=== PATIENT | male | born 1945 | race Caucasian/White ===

== ENCOUNTER 2023-10-02 11:02 | Outpatient (CLI) | payer MEDICARE ==
[2023-10-03] MEDS ORDERED: ATOR40TA72 PO (14:38)
[2023-10-03] MEDS ORDERED: DUTA0.5C36 (14:38)
[2023-10-03] MEDS ORDERED: ENOX120D5 SQ (14:38)
[2023-10-03] MEDS ORDERED: BUPR-317 PO (14:38)
[2023-10-03] MEDS ORDERED: FLO0.4C (14:38)
[2023-10-03] MEDS ORDERED: FLUT16SP26 NS (14:38)
[2023-10-03] MEDS ORDERED: APIX5TAB3 PO (14:38)
[2023-10-03] MEDS ORDERED: RABE20TA31 PO (14:38)
[2023-10-03] MEDS ORDERED: CETI-194 PO (14:39)
== END 2023-10-02 23:59 | disposition home or self-care (01) ==
LOC: RAD 11:02
PROVIDERS: ATTEND Otolaryngology
DX: J32.2 Chronic ethmoidal sinusitis (principal); J32.0 Chronic maxillary sinusitis; J32.8 Other chronic sinusitis
CPT/HCPCS: 70486

== ENCOUNTER 2023-10-04 09:11 | Day surgery (SDC) | payer MEDICARE ==
[2023-10-04] VITALS (7 sets, daily range): BP systolic 114–139; BP diastolic 61–79; PULSE 67–79; RESP 11–16; TEMP 98.3; O2SAT 93–98
[~2023-10-04] VITALS: Ht 180.3 cm; Wt 123.1 kg
[~2023-10-04 09:11] MED LIST: APIX5TAB3 PO; ATOR40TA72 PO; BUPR-317 PO; CETI-194 PO; DUTA0.5C36; ENOX120D5 SQ; FLO0.4C; FLUT16SP26 NS; RABE20TA31 PO; ceFAZolin inj. 3,000 MG in normal saline 100ml IV soln 100 ML IV ONE; ringers solution, lacted 1,000 ML IV SCH
[2023-10-04] MEDS ORDERED: epiNEPHrine 1 mg/ml inj ONE (10:07)
[2023-10-04] MEDS ORDERED: LIDOcaine 1% W/epiNEPHrine 1:100,000 20ml vial ONE (10:07)
[2023-10-04] MEDS: famotidine 20mg tablet PO ONE (10:20)
[2023-10-04] MEDS ORDERED: fentaNYL/PF 50MCG/1 ML 2ML syringe ONE (10:37)
[2023-10-04] MEDS ORDERED: midazolam 1 mg/ML 2ml injection ONE (10:38)
[2023-10-04] MEDS: oxymetazoline 15 ML nasal spray NS ONE ×2 (10:59→11:42)
[2023-10-04] MEDS ORDERED: sevoflurane 250ml liquid IH ONE (11:03)
[2023-10-04] MEDS ORDERED: propofol inj 20 ML IV ONE (11:37)
[2023-10-04] MEDS ORDERED: rocuronium 10mg/ml inj IV ONE (11:37)
[2023-10-04] MEDS: cocaine 4% topical solution 4ml bottle ONE (11:37)
[2023-10-04] MEDS: epiNEPHrine 1 mg/ml 30ml MDV ONE (11:41)
[2023-10-04] MEDS: LIDOcaine 1% W/epiNEPHrine 1:100,000 20ml vial ONE (11:41)
[2023-10-04] MEDS: mupirocin 2% ointment 22GM ONE (11:42)
[2023-10-04] MEDS: tranexamic acid 100mg/ml inj. ONE (11:42)
[2023-10-04] MEDS ORDERED: albumin (Human) 5% 250ml 250 ML IV ONE (11:43)
[2023-10-04] MEDS ORDERED: dexamethasone sod phosphate 4mg/ml inj. ONE (11:43)
[2023-10-04] MEDS ORDERED: ondansetron/PF 4mg/2ml inj ONE (12:21)
[2023-10-04] MEDS ORDERED: mupirocin 2% nasal ointment 1gm UD NS ONE (13:05)
[2023-10-04] MEDS ORDERED: salt irrigation nasal spray 45 ML SPRAY NS ONE (13:05)
[2023-10-04] MEDS ORDERED: FLO0.4C PO (21:47)
== END 2023-10-04 14:09 | disposition home or self-care (01) ==
LOC: PAS 09:11
PROVIDERS: ATTEND Otolaryngology
DX: J34.2 Deviated nasal septum (principal); J34.3 Hypertrophy of nasal turbinates; J32.9 Chronic sinusitis, unspecified; F32.A Depression, unspecified; K21.9 Gastro-esophageal reflux disease without esophagitis; Z91.040 Latex allergy status; Z79.899 Other long term (current) drug therapy; Z98.890 Other specified postprocedural states
CPT/HCPCS: 30140; 30520; 31253; 31256; 61782; 82948; 87070; 87075; 87077; 87186; A6402; J0171; J0690; J1100; J2250; J2405; J2704; J2710; J3010; J3490; J7030; J7050; J7120; P9045; Z7506; Z7508; Z7512; A4618; A6449; A7000

== ENCOUNTER 2023-10-04 20:18 | Emergency (ER) | payer MEDICARE ==
[~2023-10-04] VITALS: Ht 180.3 cm; Wt 123.0 kg
[~2023-10-04 20:18] MED LIST changes: -ceFAZolin inj. 3,000 MG in normal saline 100ml IV soln 100 ML IV ONE; -ringers solution, lacted 1,000 ML IV SCH
[2023-10-04 20:28] VITALS: BP 141/84; PULSE 75; RESP 16; TEMP 97.5; O2SAT 93
[2023-10-04] MEDS: LidoCAINE 2% Topical Jelly 11mL syringe (UROJET) TOP ONE (21:25)
[2023-10-04] MEDS ORDERED: FLO0.4C PO (21:47)
[2023-10-04 21:51] LABS: BILIRUBIN,URINE NEGATIVE (Neg); CLARITY,URINE CLEAR (Clear); COLOR,URINE YELLOW (Yellow); GLUCOSE, URINE NEGATIVE (Neg); KETONES,URINE NEGATIVE (Neg); LEUKOCYTE ESTERASE ,URINE NEGATIVE (Neg); NITRITES, URINE NEGATIVE (Neg); OCCULT BLOOD,URINE NEGATIVE (Neg); PROTEIN,URINE NEGATIVE (Neg); UROBILINOGEN,URINE 0.2 E.U/dL (0.2-1.0)
[2023-10-04 21:58] LABS: UA COLLECTION TYPE FOLEY CATH
== END 2023-10-04 22:03 | disposition home or self-care (01) ==
LOC: ER 20:19
DX: R33.9 Retention of urine, unspecified (principal); Z91.040 Latex allergy status; Z91.048 Other nonmedicinal substance allergy status
CPT/HCPCS: 51702; 81003; 99284; A4314; A4358

== ENCOUNTER → 2024-10-10 | Outpatient (CLI) | payer MEDICARE ==
[~2024-10-10] VITALS: Ht 180.3 cm; Wt 118.8 kg
[~2024-10-10] MED LIST changes: -BUPR-317 PO; +BUPR-726 PO; -FLO0.4C; -RABE20TA31 PO; +RABE20TA32 PO; +TAMS-55
[2024-10-10 09:06] LABS: TOTAL HEMOGLOBIN 15.9 G/dl (13.5-17.5)
[2024-10-10] MEDS: albuterol 2.5 MG/3 ML nebule NEB ONE (09:40)
[2024-10-10 09:43] VITALS: PULSE 59; RESP 16; O2SAT 96
[2024-10-10 09:55] VITALS: PULSE 60; RESP 16
--- NOTE | 2024-10-10 15:07 | PROCEDURE NOTE - Respiratory ---
Procedure Note-Respiratory Providers to Copies To 1: GREG FERGUSON MD Procedure Name: This is a complete pulmonary function study dated October 10, 2024. Hemoglobin measurement was done as part of the study. Spirometry measurements: Both the forced vital capacity and the FEV1 are in the lower range of normal. The FEV1 ratio is slightly elevated. The flow rates are normal with the exception of slight loss of the terminal flow rates FEF 75%. After inhaled bronchodilators some of the flow rates show slight improvement. Lung volume measurements: The total lung capacity and residual volume measurements are clearly reduced. The functional residual capacity measurement is normal. Lung diffusion measurement: The DLCO measurement is in the normal range. We note that the hemoglobin measurement is normal. Airway resistance measurement: The airway resistance shows no increased. Overall conclusion: This study shows mild abnormality. 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 In addition the patient shows very mild obstructive ventilatory defect with slight improvement with inhaled bronchodilator. The lung diffusion capacity is normal. Part of the restrictive ventilatory process may relate to the patient's obese condition. We have no previous studies for comparison. This patient may benefit from a trial of inhaled bronchodilator medication. GREG FERGUSON MD October 10, 2024 15:07
== END | disposition home or self-care (01) ==
LOC: RT 08:43
PROVIDERS: ATTEND Internal Medicine Pulmonary Disease
DX: I26.99 Other pulmonary embolism without acute cor pulmonale (principal)
CPT/HCPCS: 85018; 94060; 94727; 94729; 94760